=== PATIENT | female | born 1995 | race Caucasian/White ===

== ENCOUNTER 2017-06-13 10:18 | Emergency (ER) | payer MEDICAID, OTHER ==
[~2017-06-13] VITALS: Ht 162.6 cm; Wt 50.0 kg
[~2017-06-13 10:18] MED LIST: HYDR-3533 PO
[2017-06-13 10:21] VITALS: BP 105/59; PULSE 94; RESP 13; TEMP 97.4; O2SAT 97
[2017-06-13] MEDS ORDERED: ZITHTAB PO (11:18)
[2017-06-13] MEDS ORDERED: PHENERGAN W CODEIN PO (11:18)
--- NOTE | 2017-06-13 11:18 | PD ---
HPI Chief Complaint: Cold / Flu Symptoms Time Seen by Provider: 11:03 Travel History International Travel<30 days: No Contact w/Intl Traveler<30days: No Traveled to known affect area: No History of Present Illness HPI 21-year-old female complains of earaches, sore throat, coughing congestion, body ache, nausea. Patient states that the symptoms started 3 days ago. Patient states that she had low-grade fever at home. Patient states that the cough is persistent and dry cough. Patient complains of chest wall pain with coughing. Patient denies any chance of being . PFSH Past Medical History Diminished Hearing: No Immunizations Current: Yes ?: Not LMP: 06/12/17 : 0 Social History Alcohol Use: Yes (OCC) Tobacco Use: No Substance Use: Yes (MARIJUANA) Allergies-Medications (Allergen,Severity, Reaction): Coded Allergies: No Known Allergies (Unverified Adverse Reaction, Unknown, 06/13/17) Reported Meds & Prescriptions Reported Meds & Active Scripts Active Lortab 5 mg/325 mg (Hydrocodone/Acetaminophen 5 mg/325 mg) 1 Tab 1 Tab PO Q6H PRN Review of Systems General / Constitutional: No: Fever Eyes: No: Visual changes HENT: Positive: Sore Throat, Congestion, Earache, No: Headaches Cardiovascular: No: Chest Pain or Discomfort Respiratory: Positive: Cough, No: Shortness of Breath Gastrointestinal: No: Abdominal Pain Genitourinary: No: Dysuria Musculoskeletal: No: Pain Skin: No Rash Neurologic: No: Weakness Psychiatric: No: Depression Endocrine: No: Polydipsia Hematologic/Lymphatic: No: Easy Bruising Physical Exam Narrative GENERAL: Well-nourished, well-developed patient. SKIN: Focused skin assessment warm/dry. HEAD: Normocephalic. EYES: No scleral icterus. No injection or drainage. TM: Clear. Throat: Mild erythematous. NECK: Supple, trachea midline. No JVD or lymphadenopathy. No meningismus CARDIOVASCULAR: Regular rate and rhythm without murmurs, gallops, or rubs. RESPIRATORY: Breath sounds equal bilaterally. No accessory muscle use. GASTROINTESTINAL: Abdomen soft, non-tender, nondistended. MUSCULOSKELETAL: No cyanosis, or edema. BACK: Nontender without obvious deformity. No CVA tenderness. Data Data Last Documented VS Vital Signs Date Time Temp Pulse Resp B/P (MAP) Pulse Ox O2 Delivery O2 Flow Rate FiO2 06/13/17 11:07 18 100 06/13/17 10:21 97.4 94 105/59 (74) MDM Medical Decision Making Medical Screen Exam Complete: Yes Emergency Medical Condition: Yes Differential Diagnosis Differential diagnosis including viral syndrome, bronchitis, pneumonia. Narrative Course 21-year-old female with earache sore throat coughing congestion body ache. Diagnosis Primary Impression: Bronchitis Additional Impression: Viral syndrome Patient Instructions: General Instructions Additional Instructions: Z-Henri as directed. Cough medication as directed. Tylenol Motrin for aching pain and fever. Follow-up with personal physician. Return if worse. Med/Other Pt SpecificInfo: Prescription(s) given Scripts [Phenergan W Codein] No Conflict Check 10 ML PO Q8HR for Cough, #120 Prov: Rajesh Orona MD 06/13/17 Azithromycin (Zithromax Z-Henri) 250 Mg Dspk 250 MG PO DIRECTED for Infection, #1 DSPK 0 Refills 500 MG (2 tabs) day 1, then 1 tab days 2-5. Prov: Rajesh Orona MD 06/13/17 Disposition: 01 DISCHARGE HOME Condition: Stable Rajesh Orona MD Jun 13, 2017 11:18
== END 2017-06-13 11:35 | disposition home or self-care (01) ==
LOC: NEPD 10:18
DX: J40 Bronchitis, not specified as acute or chronic (principal); B34.9 Viral infection, unspecified
CPT/HCPCS: 99284